=== PATIENT | female | born 1970 | race African-American/Black ===

== ENCOUNTER 2018-07-25 03:59 | Emergency (ER) | payer MEDICAID ==
[~2018-07-25] VITALS: Ht 167.6 cm; Wt 68.0 kg
[2018-07-25] MEDS ORDERED: PROCHLORPERAZINE EDISYLATE 10 MG/2 ML VIAL IV ONE (04:45)
[2018-07-25] MEDS ORDERED: IV NORMAL SALINE 1000 ML BAG IV ONE (04:45)
[2018-07-25] MEDS ORDERED: MORPHINE SULFATE 4 MG/1 ML DISP.SYRIN IV ONE (04:45)
[2018-07-25] MEDS ORDERED: MORPHINE SULFATE 4 MG/1 ML DISP.SYRIN ONE (04:51)
[2018-07-25] MEDS ORDERED: PROCHLORPERAZINE EDISYLATE 10 MG/2 ML VIAL ONE (04:51)
[2018-07-25 05:09] LABS: CREATININE 0.7 mg/dL (0.6-1.3); POTASSIUM 4.2 mmol/L (3.5-5.1)
[2018-07-25 05:10] LABS: BASOPHILS # (AUTO) 0.1 K/uL (0.0-8.0); BASOPHILS % (AUTO) 1.4 % (0.0-2.0); EOSINOPHILS # (AUTO) 0.2 K/uL (0.0-0.7); LYMPHOCYTES # (AUTO) 1.8 K/uL (20.0-40.0)
[2018-07-25 05:13] LABS: EOSINOPHILS % (AUTO) 1.9 % (0.0-7.0); LYMPHOCYTES % (AUTO) 20.7 % (20.5-51.5); MEAN CORPUSCULAR HEMOGLOBIN 18.5 uug (24.7-32.8); MEAN CORPUSCULAR HGB CONC 28 g/dL (32.3-35.6); MEAN CORPUSCULAR VOLUME 65.4 fL (75.5-95.3); MONOCYTES # (AUTO) 0.7 K/uL (2.0-10.0); MONOCYTES % (AUTO) 8.8 % (0.0-11.0); NEUTROPHILS # (AUTO) 5.7 K/uL (1.8-8.9); NEUTROPHILS % (AUTO) 67.2 % (38.5-71.5); PLATELET COUNT (AUTO) 979 K/uL (179-408); WHITE BLOOD COUNT (AUTO) 8.5 K/uL (3.8-11.8)
[2018-07-25 05:29] LABS: RED BLOOD CELL COUNT(AUTO) 2.36 MIL/uL (3.63-4.92)
[2018-07-25 05:32] LABS: HEMATOCRIT 15.4 % (31.2-41.9); HEMOGLOBIN 4.4 g/dL (10.9-14.3)
--- NOTE | 2018-07-25 05:43 | NUR ---
Pt medicated for pain and nausea. Alert oriented x 4. No visual deficits. Noted with full ROM in neck, upper extremities and lower extremities. Sensation intact bilaterally. No complaints of dizziness or syncopal episodes after medication. Pupils equal round and reactive to light bilaterally and accommodating.
[2018-07-25] MEDS ORDERED: KETOROLAC TROMETHAMINE 30 MG INJ IVP ONE (06:15)
[2018-07-25] MEDS ORDERED: KETOROLAC TROMETHAMINE 30 MG INJ ONE (06:28)
[2018-07-25 06:35] VITALS: BP 116/78
[2018-07-25 08:16] LABS: BASOPHILS % (MANUAL) 2 % (0-2); LYMPHOCYTES % (MANUAL) 19 % (20-40); METAMYELOCYTES % 1 % (0-1); MONOCYTES % (MANUAL) 7 % (2-10); NEUTROPHILS % (MANUAL) 71 % (42-75)
--- NOTE | 2018-08-01 08:49 | NUR ---
NURSING NOTE: ADDENDUM 07/25/18 0545 IV NORMAL SALINE INFUSED TO LEFT AC 20G AT 0545.
== END 2018-07-25 05:43 | disposition left against medical advice (07) ==
LOC: ER 04:05
DX: D64.9 Anemia, unspecified (principal); R51 Headache; D69.6 Thrombocytopenia, unspecified; N92.1 Excessive and frequent menstruation with irregular cycle
CPT/HCPCS: 36415; 70450; 80048; 85025; 85651; 86850; 86900; 86901; 86920; 96374; 96375; 99284; J0780; J2270; A4663; J1885; J7030

== ENCOUNTER 2018-08-30 22:07 | Emergency (ER) | payer MEDICAID ==
[~2018-08-30] VITALS: Ht 167.6 cm; Wt 63.5 kg
--- NOTE | 2018-08-30 22:35 | NUR ---
Pt. ambulated into ED w/ c/o BRIONES 08/18 d/t fall/collision w/ door while at work, states she missed a step and bumped her head, there is a round tangerine sized inflammation on L side of forehead, A/Ox4, speaks in clear and complete sentences, RR even and unlabored, pt. does not appear to be in distress, denies N/V/D/SOB/CP/F/C, pt. is in work uniform and accompanied by male friend,
[2018-08-30] MEDS ORDERED: ONDANSETRON ODT 4 MG TAB.RAPDIS SL ONE (22:45)
[2018-08-30] MEDS ORDERED: OXYCODONE/APAP 5-325 MG TABLET PO ONE (22:45)
[2018-08-30] MEDS ORDERED: ONDANSETRON ODT 4 MG TAB.RAPDIS ONE (22:47)
[2018-08-30] MEDS ORDERED: OXYCODONE/APAP 5-325 MG TABLET ONE (22:48)
--- NOTE | 2018-08-30 22:53 | NUR ---
Patient discharged to home in stable conditon. Written and verbal after care instructions given. Patient verbalizes understanding of instructions. Pt. d/c w/ prescription per MD order, d/c papers signed, all belongings w/ pt., ID band removed, ambulated off unit w/ steady gait accompanied by male medical imaging director, instructed not to drive, NAD
== END 2018-08-30 23:09 | disposition home or self-care (01) ==
LOC: ER 22:11
DX: S00.83XA Contusion of other part of head, initial encounter (principal); W22.8XXA Striking against or struck by other objects, initial encounter; Y93.89 Activity, other specified; Y92.89 Other specified places as the place of occurrence of the external cause; Y99.8 Other external cause status
CPT/HCPCS: A4663; Q0162